=== PATIENT | male | born 1945 ===

== ENCOUNTER 2021-10-04 08:25 | Outpatient (CLI) | payer OTHER | END 2021-10-04 08:26 | disposition home or self-care (01) | LOC: RX STUDY 08:25 | DX: R13.10 Dysphagia, unspecified (principal) ==

== ENCOUNTER 2023-07-10 08:23 | Outpatient (CLI) | payer OTHER | END 2023-07-10 08:31 | disposition home or self-care (01) | LOC: RX STUDY 08:23 | PROVIDERS: ATTEND Internal Medicine Gastroenterology | DX: R13.12 Dysphagia, oropharyngeal phase (principal) ==